=== PATIENT | male | born 1985 | race Caucasian/White ===

== ENCOUNTER 2022-08-29 23:01 | Observation (INO) | payer BC ==
[2022-08-29] MEDS ORDERED: Sodium Chloride 0.9% 1,000 ML IV ONE (23:22)
[2022-08-29] MEDS ORDERED: Ondansetron 4 MG/2 ML SDV IVPUSH STA (23:22)
[2022-08-29] MEDS ORDERED: Meclizine 12.5 MG Tab PO ONE (23:22)
[2022-08-30 00:02] LABS: AMPHETAMINES,URINE NEGATIVE (NEGATIVE); BARBITURATES,URINE NEGATIVE (NEGATIVE); BENZODIAZEPINE,URINE NEGATIVE (NEGATIVE); MDMA (ECSTASY), URINE NEGATIVE (NEGATIVE); METHADONE,URINE NEGATIVE (NEGATIVE); METHAMPHETAMINES,URINE NEGATIVE (NEGATIVE); OPIATES,URINE NEGATIVE (NEGATIVE); OXYCODONE,URINE NEGATIVE (NEGATIVE); PHENCYCLIDINE,URINE NEGATIVE (NEGATIVE); TCA,URINE NEGATIVE (NEGATIVE)
[2022-08-30 00:29] LABS: CORONAVIRUS COVID-19 NAA NEGATIVE (NEGATIVE)
[2022-08-30] MEDS ORDERED: Potassium Chloride 10 MEQ Tab.ER PO ONE (00:31)
[2022-08-30] MEDS ORDERED: Iopamidol 755 Mg/ML 100 ML Bottle IVPUSH ONE (00:38)
[2022-08-30] MEDS ORDERED: Acetaminophen 325 MG Tab PO PRN (01:35)
[2022-08-30] MEDS ORDERED: Ondansetron 4 MG/2 ML SDV IV PRN (01:35)
[2022-08-30] MEDS ORDERED: Ondansetron 4 MG Tab.DIS PO PRN (01:35)
[2022-08-30] MEDS ORDERED: Sodium Chloride 0.9% 1,000 ML IV ONE (01:38)
[2022-08-30] MEDS: cefTRIAXone 1 GM Vial IVPUSH SCH (01:54)
[2022-08-30] MEDS: Sodium Chloride 0.9% 1,000 ML IV SCH ×2 (03:15→11:32)
[2022-08-30] MEDS: Meclizine 12.5 MG Tab PO PRN ×2 (09:56→19:28)
[2022-08-31] MEDS: cefTRIAXone 1 GM Vial IVPUSH SCH (01:39)
== END 2022-08-31 10:53 | disposition home or self-care (01) ==
LOC: CC.ED 23:01 → UNDOADMOB 08-30 01:09 → CC.MS 08-30 01:09
PROVIDERS: ADMIT Nurse Practitioner Family; ATTEND Nurse Practitioner
DX: D72.9 Disorder of white blood cells, unspecified (principal); E87.6 Hypokalemia; R16.1 Splenomegaly, not elsewhere classified; Z79.899 Other long term (current) drug therapy; Z20.822 Contact with and (suspected) exposure to COVID-19
CPT/HCPCS: 0240U; 36415; 74177; 80048; 80053; 80305-QW; 81001; 83690; 83735; 85025; 96361; 96374; 96375; 96376; 97112-GP; 97161-GP; 99223; 99239; 99285-25; A9270-GY; G0378; J0696; J2405; J7030; Q9967

== ENCOUNTER 2024-08-04 05:35 | Emergency (ER) | payer BC ==
[2024-08-04] MEDS: Aspirin 81 MG Tab.Chew PO ONE (05:59)
[2024-08-04 06:14] LABS: BASOPHILS ABSOLUTE AUTO 0.07 10^3/uL (0.00-0.50); BASOPHILS PERCENT AUTO 0.5 % (0-1); EOSINOPHILS ABSOLUTE AUTO 0.33 10^3/uL (0.00-1.50); EOSINOPHILS PERCENT AUTO 2.5 % (0-6); HEMATOCRIT 49.6 % (42.0-52.0); HEMOGLOBIN 17.1 g/dL (14.0-18.0); IMMATURE GRAN ABSOLUTE AUTO 0.05 10^3/uL (0.00-0.49); IMMATURE GRAN PERCENT AUTO 0.4 % (0.0-4.9); LYMPHOCYTES PERCENT AUTO 14.9 % (24-44); MEAN CORPUSCULAR HEMOGLOBIN 26.7 pg (27.0-32.0); MEAN CORPUSCULAR HGB CONC 34.5 g/dL (32.0-36.0); MEAN CORPUSCULAR VOLUME 77.5 fL (83.0-97.0); MONOCYTES ABSOLUTE AUTO 0.84 10^3/uL (0.00-1.50); MONOCYTES PERCENT AUTO 6.2 % (0-10); NEUTROPHILS ABSOLUTE AUTO 10.16 x10^3/uL (1.80-8.00); NEUTROPHILS PERCENT AUTO 75.5 % (41-71); PLATELET COUNT,PLT 313 10^3/uL (150-400); WHITE BLOOD CELL COUNT,WBC 13.5 10^3/uL (4.0-11.0)
[2024-08-04] MEDS: Alum Hydrox/Mag Hydrox/Simeth 30 ML, Lidocaine 2% 15 ML PO ONE (06:31)
[2024-08-04 06:32] LABS: ALBUMIN 4.4 g/dL (3.4-5.0); BILIRUBIN TOTAL 0.5 mg/dL (0.0-1.0); CALCIUM 9.7 mg/dL (8.4-10.1); CREATININE 1.3 mg/dL (0.7-1.3); EST CRCL DRUG DOSING (CG) 77.8 mL/min; MAGNESIUM 2.1 mg/dL (1.8-2.4); POTASSIUM,K 3.6 mEq/L (3.5-5.0); PROTEIN TOTAL,TP 8.1 g/dL (6.4-8.2)
[2024-08-04 06:49] LABS: INR 1.06 (0.92-1.18); PROTHROMBIN TIME 11.1 SEC (9.3-11.3); PTT,PARTIAL THROMBOPLSTIN TIME 28.2 SEC (20.0-30.0)
== END 2024-08-04 06:54 | disposition home or self-care (01) ==
LOC: CC.ED 05:35
DX: K21.9 Gastro-esophageal reflux disease without esophagitis (principal); R07.89 Other chest pain; Z79.899 Other long term (current) drug therapy
CPT/HCPCS: 36415; 71046; 80053; 82550; 83615; 83690; 83735; 84484; 85025; 85610; 85730; 86140; 93005; 99285; A9270